=== PATIENT | female | born 1980 | race Asian ===

== ENCOUNTER 2018-01-12 21:40 | Emergency (ER) | payer OTHER ==
[2018-01-12 21:58] VITALS: Ht 162.6 cm
[2018-01-13 02:25] VITALS: BP 154/94
== END 2018-01-13 02:25 | disposition home or self-care (01) ==
LOC: ED 21:40
DX: R10.31 Right lower quadrant pain (principal); R11.10 Vomiting, unspecified
CPT/HCPCS: J1885; Q0092